=== PATIENT | female | born 1945 | race Caucasian/White ===

== ENCOUNTER → 2017-12-09 22:24 | Outpatient (CLI) | payer MEDICARE, MEDICAID ==
[2015-10-17 11:40] VITALS: BMI 26.6
[~2017-12-09 22:24] MED LIST: BAYER CHEWABLE81 MG PO; CRESTOR40 MG PO; HYDROCHLOROTHIA25 MG GT; NITROQUICK0.4 MG; NORVASC5 MG PO; PROTONIX40 MG PO; REQUIP1 MG PO; XANAX0.25 MG PO; ZANTAC150 MG PO
== END | disposition home or self-care (01) ==
LOC: D.MAMMO 15:45
DX: Z12.31 Encounter for screening mammogram for malignant neoplasm of breast (principal)

== ENCOUNTER → 2018-08-24 09:53 | Outpatient (CLI) | payer MEDICARE, MEDICAID ==
[2015-10-17 11:40] VITALS: BMI 26.6
== END | disposition home or self-care (01) ==
LOC: D.HCCARDIO 09:53
PROVIDERS: ATTEND Internal Medicine Cardiovascular Disease
DX: I25.119 Atherosclerotic heart disease of native coronary artery with unspecified angina pectoris (principal)

== ENCOUNTER 2019-01-14 08:00 | Outpatient (CLI) | payer MEDICARE, MEDICAID ==
[2015-10-17 11:40] VITALS: BMI 26.6
== END 2019-01-14 12:00 | disposition home or self-care (01) ==
LOC: D.MAMMO 08:00
PROVIDERS: ATTEND Clinical Nurse Specialist Adult Health
DX: Z12.31 Encounter for screening mammogram for malignant neoplasm of breast (principal)